=== PATIENT | male | born 1965 | race Hispanic/Latino ===

== ENCOUNTER 2024-10-25 09:32 | Emergency (ER) | payer OTHER ==
[~2024-10-25] VITALS: Ht 162.6 cm; Wt 77.0 kg
[~2024-10-25 09:32] MED LIST: ANAPROX DS550 MG PO; FLEXERIL10 MG PO; HYDROCODON-ACE1 EAC8 PO
--- OUTSIDE RECORDS SUMMARY | 2024-10-25 09:39 | XMS ---
PreManage Notification: VERONICA HICKS Security Agricultural Sales Representative Events No recent Security Events currently on file CRITERIA MET - [facility] - 2 Visits in 30 Days CARE PROVIDERS -, [facility] Dentist: Press Assistant And Feeder Current [place] PHONE: [phone] KARAN DUMONT Physician Plant Safety Engineer Current PHONE: Unknown Page has no Care Guidelines for this patient. Jer VISIT COUNT (12 MO.) [address] [place] [address] TOTAL 2 NOTE: Visits indicate total known visits. ED/UCC VISIT TRACKING (12 MO.) 10/25/2024 09:32 [facility] [place] TYPE: Emergency COMPLAINT: - RT THUMB WOUND CHECK 10/18/2024 10:02 [facility] [place] TYPE: Emergency COMPLAINT: - RT FINGER INJURY DIAGNOSES: - Caught, crushed, jammed, or pinched between moving objects, initial encounter - Essential (primary) hypertension - Laceration without foreign body of right thumb with damage to nail, initial encounter - Unspecified injury of right wrist, hand and finger(s), initial encounter INPATIENT VISIT TRACKING (12 MO.) No inpatient visits to display in this time frame [email or web address]
[2024-10-25] MEDS ORDERED: IBUPROFEN 600 MG TAB PO ONE (10:30)
[2024-10-25 10:32] VITALS: BP 176/86
== END 2024-10-25 10:34 | disposition home or self-care (01) ==
LOC: ED 09:32
DX: Z02.89 Encounter for other administrative examinations (principal); S69.91XD Unspecified injury of right wrist, hand and finger(s), subsequent encounter; X58.XXXD Exposure to other specified factors, subsequent encounter; I10 Essential (primary) hypertension
CPT/HCPCS: A9270